=== PATIENT | female | born 1970 | race Two or more races ===

== ENCOUNTER 2018-09-23 07:47 | Outpatient (CLI) | payer OTHER | END 2018-09-23 08:03 | disposition home or self-care (01) | LOC: LAB 07:47 | DX: K76.0 Fatty (change of) liver, not elsewhere classified (principal); Z51.81 Encounter for therapeutic drug level monitoring ==

== ENCOUNTER 2018-10-21 07:18 | Outpatient (CLI) | payer OTHER | END 2018-10-21 17:00 | disposition home or self-care (01) | LOC: MRI 07:18 | DX: K76.0 Fatty (change of) liver, not elsewhere classified (principal); E66.8 Other obesity; I86.2 Pelvic varices; R97.8 Other abnormal tumor markers; N94.9 Unspecified condition associated with female genital organs and menstrual cycle; R10.84 Generalized abdominal pain | CPT/HCPCS: 72196; 74182; A9579 ==